=== PATIENT | male | born 1945 | race Hispanic/Latino ===

== ENCOUNTER 2017-03-16 13:45 | Outpatient (CLI) | payer MEDICARE ==
--- NOTE | 2017-03-16 15:01 | XRay Report ---
LEFT KNEE, 3 views: History: Left knee pain. Normal bone mineralization. Severe tricompartmental osteoarthritic changes are identified. There appears to be a large calcified foreign body in the suprapatellar bursa measuring up to 3.5 x 1.5 cm on the lateral image. No evidence for fracture or lesion. IMPRESSION: Severe osteoarthritis. Possible calcified interarticular foreign body in the suprapatellar bursa.
== END 2017-03-16 13:46 | disposition home or self-care (01) ==
LOC: SPVIMAG 13:45
DX: M17.12 Unilateral primary osteoarthritis, left knee (principal)